=== PATIENT | male | born 1960 | race Caucasian/White ===

== ENCOUNTER → 2016-12-09 | Outpatient (CLI) | payer OTHER ==
[~2016-12-09] MED LIST: ASPIRIN EC81 MG PO; B-1100 MG PO; FLOVENT DISKUS50 MCG INH; FOLIC ACID 1 MG1 MG PO; HYDROXYZINE HCL10 MG PO; INDERAL XL120 MG PO; MULTI-DAY VITA1 EACH PO; SYNTHROID 50 M50 MCG PO; ZOFRAN 8 MG TAB8 MG PO
== END ==
LOC: US 10:01
DX: R09.89 Other specified symptoms and signs involving the circulatory and respiratory systems (principal); I65.23 Occlusion and stenosis of bilateral carotid arteries
CPT/HCPCS: 93880

== ENCOUNTER 2017-03-12 05:40 | Emergency (ER) | payer OTHER ==
[2017-03-12 07:38] LABS: HEMOGLOBIN 13.3 gm/dl (14.0-17.5); RED BLOOD COUNT 4.84 M/UL (4.20-5.50); WHITE BLOOD COUNT 8.4 K/UL (4.5-11.0)
== END 2017-03-12 11:00 | disposition home or self-care (01) ==
LOC: ER1 05:40
PROVIDERS: Physician Assistant
DX: K57.92 Diverticulitis of intestine, part unspecified, without perforation or abscess without bleeding (principal); K80.70 Calculus of gallbladder and bile duct without cholecystitis without obstruction; E86.0 Dehydration; N28.9 Disorder of kidney and ureter, unspecified; Z85.46 Personal history of malignant neoplasm of prostate; Z88.0 Allergy status to penicillin; Z79.899 Other long term (current) drug therapy
CPT/HCPCS: 36415; 76705; 80053; 81001; 82150; 83690; 84484; 85025; 93005; 96361; 96374; 96375; 96376; 99284; J2270; J2405; J3360; J7030; J7050; Q9962

== ENCOUNTER 2020-10-17 21:35 | Inpatient (IN) | payer OTHER ==
[~2020-10-17] VITALS: Ht 167.6 cm; Wt 106.6 kg
[~2020-10-17 21:35] MED LIST changes: +AMLODIPINE BESY10 MG PO; +CEFDINIR300 MG PO; +ELAVIL 10 MG TA10 MG PO; +FLUZONE QU60 MCG/018 IM; +LIPITOR TAB 1010 MG PO; +METFORMIN HCL500 MG PO; +PEPCID AC10 MG PO; +PROTONIX 40 MG40 M1 PO; +TRAZODONE HCL100 MG PO
[2020-10-18 00:31] LABS: HEMOGLOBIN 15.1 gm/dl (14.0-17.5); RED BLOOD COUNT 5.01 M/UL (4.20-5.50); WHITE BLOOD COUNT 7.1 K/UL (4.5-11.0)
[2020-10-18 00:52] LABS: BUN/CREATININE RATIO 12 (0-10)
[2020-10-18 05:00] LABS: RED BLOOD COUNT 4.69 M/UL (4.20-5.50); WHITE BLOOD COUNT 6.8 K/UL (4.5-11.0)
[2020-10-18 05:17] LABS: BUN/CREATININE RATIO 15 (0-10)
[2020-10-18] MEDS ORDERED: FEXOFENADINE H180 MG PO (09:20)
[2020-10-18] MEDS ORDERED: FLONASE 0.05% N16 GM (09:20)
[2020-10-18] MEDS ORDERED: TRAZODONE HCL100 MG PO (21:04)
[2020-10-19 03:53] LABS: HEMOGLOBIN 12.9 gm/dl (14.0-17.5); RED BLOOD COUNT 4.34 M/UL (4.20-5.50)
[2020-10-19 04:03] LABS: WHITE BLOOD COUNT 3.8 K/UL (4.5-11.0)
[2020-10-19 04:50] LABS: BUN/CREATININE RATIO 10 (0-10)
[2020-10-20 06:00] LABS: HEMOGLOBIN 12.7 gm/dl (14.0-17.5); RED BLOOD COUNT 4.42 M/UL (4.20-5.50); WHITE BLOOD COUNT 3.8 K/UL (4.5-11.0)
[2020-10-20 06:09] LABS: BUN/CREATININE RATIO 7 (0-10)
[2020-10-20] MEDS ORDERED: LEVOFLOXACIN500 MG PO (12:07)
[2020-10-20] MEDS ORDERED: FLAGYL500 MG PO (12:07)
== END 2020-10-20 13:45 | disposition home or self-care (01) | DRG 392 ==
LOC: ER1 21:35 → CDU 10-18 04:00 → M/S 10-18 04:00 → CDU 10-18 04:00 → M/S 10-18 17:39
PROVIDERS: Internal Medicine; Physician Assistant; ADMIT Family Medicine
DX: K57.32 Diverticulitis of large intestine without perforation or abscess without bleeding (principal); C61 Malignant neoplasm of prostate; E11.9 Type 2 diabetes mellitus without complications; E78.5 Hyperlipidemia, unspecified; K21.9 Gastro-esophageal reflux disease without esophagitis; I25.10 Atherosclerotic heart disease of native coronary artery without angina pectoris; K59.00 Constipation, unspecified; E03.9 Hypothyroidism, unspecified; Z20.822 Contact with and (suspected) exposure to COVID-19; F32.9 Major depressive disorder, single episode, unspecified; F10.10 Alcohol abuse, uncomplicated; Z83.3 Family history of diabetes mellitus; Z80.9 Family history of malignant neoplasm, unspecified; Z82.49 Family history of ischemic heart disease and other diseases of the circulatory system; Z90.49 Acquired absence of other specified parts of digestive tract
CPT/HCPCS: 36415; 73552; 80048; 80053; 81001; 82962; 83690; 85025; 85027; 96374; 99285; C9113; J1956; J2270; J2405; J7030; Q9967; U0002

== ENCOUNTER 2020-12-06 22:36 | Emergency (ER) | payer OTHER ==
[~2020-12-06 22:36] MED LIST changes: +FEXOFENADINE H180 MG PO; +FLAGYL500 MG PO; +FLONASE 0.05% N16 GM; +LEVOFLOXACIN500 MG PO
[2020-12-07] MEDS ORDERED: HYDROCODON-ACE1 EAC4 PO (01:49)
[2020-12-07] MEDS ORDERED: IBUPROFEN600 MG PO (01:49)
== END 2020-12-07 02:05 | disposition home or self-care (01) ==
LOC: ER1 22:36
DX: S70.02XA Contusion of left hip, initial encounter (principal); S20.213A Contusion of bilateral front wall of thorax, initial encounter; E11.9 Type 2 diabetes mellitus without complications; I10 Essential (primary) hypertension; W19.XXXA Unspecified fall, initial encounter; Y92.009 Unspecified place in unspecified non-institutional (private) residence as the place of occurrence of the external cause; Z23 Encounter for immunization
CPT/HCPCS: 71111; 73502; 90471; 90715; 93005; 96372; 99283; J1885

== ENCOUNTER → 2020-12-18 | Outpatient (CLI) | payer OTHER ==
[~2020-12-18] MED LIST changes: +HYDROCODON-ACE1 EAC4 PO; +IBUPROFEN600 MG PO
== END ==
LOC: KOH-I 10:48
DX: Z01.818 Encounter for other preprocedural examination (principal)
CPT/HCPCS: 71046

== ENCOUNTER 2021-02-12 11:10 | Emergency (ER) | payer OTHER ==
[~2021-02-12] VITALS: Ht 167.6 cm; Wt 108.9 kg
[2021-02-12 12:19] LABS: HEMOGLOBIN 14.3 gm/dl (14.0-17.5); RED BLOOD COUNT 4.78 M/UL (4.20-5.50); WHITE BLOOD COUNT 5.9 K/UL (4.5-11.0)
[2021-02-12 12:36] LABS: BUN/CREATININE RATIO 10 (0-10)
== END 2021-02-12 14:12 | disposition home or self-care (01) ==
LOC: ER1 11:10
PROVIDERS: Physician Assistant
DX: U07.1 COVID-19 (principal); Z23 Encounter for immunization; E11.9 Type 2 diabetes mellitus without complications; I10 Essential (primary) hypertension; Z88.0 Allergy status to penicillin
CPT/HCPCS: 80053; 85025; 99284; M0243

== ENCOUNTER 2021-04-28 17:20 | Emergency (ER) | payer OTHER ==
[2021-04-28 17:39] LABS: HEMOGLOBIN 14.1 gm/dl (14.0-17.5); RED BLOOD COUNT 4.79 M/UL (4.20-5.50); WHITE BLOOD COUNT 10.6 K/UL (4.5-11.0)
[2021-04-28 17:57] LABS: BUN/CREATININE RATIO 12 (0-10)
== END 2021-04-28 19:10 | disposition short-term general hospital (02) ==
LOC: ER1 17:20
PROVIDERS: Emergency Medicine
DX: U07.1 COVID-19 (principal); S01.83XA Puncture wound without foreign body of other part of head, initial encounter; S01.531A Puncture wound without foreign body of lip, initial encounter; I10 Essential (primary) hypertension; I25.10 Atherosclerotic heart disease of native coronary artery without angina pectoris; E78.5 Hyperlipidemia, unspecified; E11.9 Type 2 diabetes mellitus without complications; Z20.822 Contact with and (suspected) exposure to COVID-19; Z88.0 Allergy status to penicillin
CPT/HCPCS: 70450; 70487; 70498; 71045; 80053; 83605; 85025; 85610; 85730; 86850; 86900; 86901; 90715; 93005; 99285; G0480; J2270; J2405; Q9967; U0002

== ENCOUNTER → 2021-08-14 | Outpatient (CLI) | payer OTHER | LOC: RAD 11:20 | DX: M47.22 Other spondylosis with radiculopathy, cervical region (principal) | CPT/HCPCS: 72040 ==

== ENCOUNTER 2021-08-31 23:34 | Emergency (ER) | payer OTHER ==
[2021-09-01] MEDS ORDERED: IBUPROFEN600 MG PO (03:35)
== END 2021-09-01 04:14 | disposition home or self-care (01) ==
LOC: ER1 23:34
DX: S70.02XA Contusion of left hip, initial encounter (principal); Z88.0 Allergy status to penicillin; W01.0XXA Fall on same level from slipping, tripping and stumbling without subsequent striking against object, initial encounter; Y92.009 Unspecified place in unspecified non-institutional (private) residence as the place of occurrence of the external cause
CPT/HCPCS: 73502; 73552; 99283

== ENCOUNTER → 2021-12-03 | Outpatient (CLI) | payer OTHER | LOC: KOH-I 11:42 | DX: M25.512 Pain in left shoulder (principal) | CPT/HCPCS: 73030 ==

== ENCOUNTER 2022-02-28 17:52 | Emergency (ER) | payer MEDICAID ==
[2022-03-01] MEDS ORDERED: IBUPROFEN600 MG PO (01:13)
[2022-03-01] MEDS ORDERED: NORFLEX 100 MG100 MG PO (01:13)
== END 2022-03-01 01:29 | disposition home or self-care (01) ==
LOC: ER1 17:52
DX: S43.402A Unspecified sprain of left shoulder joint, initial encounter (principal); Z88.0 Allergy status to penicillin; W01.0XXA Fall on same level from slipping, tripping and stumbling without subsequent striking against object, initial encounter; Y92.009 Unspecified place in unspecified non-institutional (private) residence as the place of occurrence of the external cause
CPT/HCPCS: 73030; 73060; 99283